=== PATIENT | female | born 1980 | race Caucasian/White ===

== ENCOUNTER 2017-05-24 17:23 | Emergency (ER) | payer OTHER ==
[~2017-05-24] VITALS: Ht 154.9 cm; Wt 61.2 kg
[2017-05-24] MEDS ORDERED: LEXAPRO20 MG PO (17:33)
[2017-05-24 18:10] LABS: ABSOLUTE MONOCYTES 0.3 thou/uL (0.0-1.2); BASOPHILS 0.6 %; EOSINOPHILS 0.2 %; HEMATOCRIT 46.5 % (37.0-47.0); HEMOGLOBIN 16.1 gm/dL (12.0-15.0); LYMPHOCYTES 15.7 %; MCH 32.7 pg (26.0-34.0); MCHC 34.7 g/dL (28.0-37.0); MCV 94.1 fL (80.0-100.0); MONOCYTES 4.2 %; MPV 8.4 fl. (7.2-11.1); NUCLEATED RBCS 0 /100WBC; PLATELET COUNT* 156 thou/uL (150-400); POLYS 79.3 %; RBC 4.94 mil/uL (4.20-5.00); RDW-CV 12.5 % (10.5-14.5); WBC 6.4 thou/uL (4.0-11.0)
[2017-05-24 18:18] LABS: CALCIUM 8.4 mg/dL (8.5-10.1); CREATININE 0.8 mg/dL (0.6-1.3); POTASSIUM 3.5 mmol/L (3.5-5.1)
[2017-05-24 18:22] LABS: ALBUMIN 3.7 g/dL (3.4-5.0); TOTAL BILIRUBIN 1.7 mg/dL (<0.1-1.0)
[2017-05-24 20:33] LABS: URINE BILIRUBIN NEGATIVE (Negative); URINE BLOOD 2+ (Negative); URINE CLARITY TURBID; URINE COLOR YELLOW; URINE GLUCOSE-RANDOM NEGATIVE (Negative); URINE KETONES TRACE (Negative); URINE LEUKOCYTES-REFLEX NEGATIVE (Negative); URINE NITRITE-REFLEX NEGATIVE (Negative); URINE PROTEIN NEGATIVE (Negative); URINE SPECIFIC GRAVITY <= 1.005 (1.005-1.030); URINE UROBILINOGEN 0.2 E.U./dl (0.2-1.0)
[2017-05-24 20:41] LABS: AMP/METHAMP Negative (Negative); BARBITURATES Negative (Negative); BENZODIAZEPINES Negative (Negative); COCAINE Negative (Negative); METHADONE Negative (Negative); OPIATES Negative (Negative); PCP Negative (Negative); THC Negative (Negative)
[2017-05-24 21:03] LABS: CASTS None Seen /LPF (None Seen); CRYSTALS None Seen /LPF (None Seen); MUCUS 0-3 Light strn/LPF (None Seen); SQUAMOUS >10 Many /LPF (0-3)
[2017-05-24 21:04] LABS: BACTERIA-REFLEX >30 Many /HPF (None Seen)
[2017-05-24 21:05] LABS: URINE RBC 0-2 Rare /HPF (0-2); URINE WBC-REFLEX 0-5 Rare /HPF (0-5)
[2017-05-24] MEDS ORDERED: ZOFRAN4 MG PO (22:19)
[2017-05-24 22:34] VITALS: BP 150/94
== END 2017-05-24 22:35 | disposition home or self-care (01) ==
LOC: M.ERS 17:23
PROVIDERS: Personal Emergency Response Attendant
DX: R10.13 Epigastric pain (principal); F17.210 Nicotine dependence, cigarettes, uncomplicated; Z88.1 Allergy status to other antibiotic agents

== ENCOUNTER 2018-02-26 17:49 | Inpatient (IN) | payer OTHER, MEDICAID ==
[~2018-02-26] VITALS: Ht 154.9 cm; Wt 72.5 kg
[~2018-02-26 17:49] MED LIST: LEXAPRO20 MG PO; ZOFRAN4 MG PO
[2018-02-26 17:58] VITALS: BP 155/85
[2018-02-26] MEDS ORDERED: GABAPENTIN 100100 MG PO (18:06)
--- NOTE | 2018-02-26 18:20 | NUR ---
MACARIO PONEC, FROM [facility] STATES TREATMENT IS SUPPORTIVE CARE.
[2018-02-26 18:25] LABS: ABSOLUTE MONOCYTES 0.4 thou/uL (0.0-1.2); BASOPHILS 0.4 %; HEMATOCRIT 45.5 % (37.0-47.0); HEMOGLOBIN 15.6 gm/dL (12.0-15.0); MCH 31.8 pg (26.0-34.0); MCHC 34.2 g/dL (28.0-37.0); MONOCYTES 6.8 %; MPV 8.5 fl. (7.2-11.1); NUCLEATED RBCS 0 /100WBC; PLATELET COUNT* 242 thou/uL (150-400); POLYS 61.8 %; RBC 4.89 mil/uL (4.20-5.00); RDW-CV 12.6 % (10.5-14.5); WBC 6.5 thou/uL (4.0-11.0)
[2018-02-26 18:31] LABS: CREATININE 2.6 mg/dL (0.6-1.3); POTASSIUM 3.2 mmol/L (3.5-5.1)
[2018-02-26 18:36] LABS: ALBUMIN 4.5 g/dL (3.4-5.0); TOTAL BILIRUBIN 0.2 mg/dL (<0.1-1.0); TOTAL PROTEIN 8.1 g/dL (6.4-8.2)
[2018-02-26 18:43] LABS: HCO3 25.3 mmol/L (22.0-26.0); PCO2 35.7 mmHg (35.0-45.0); PO2 85.5 mmHg (75.0-100.0); pH 7.468 (7.340-7.450)
[2018-02-26 19:05] LABS: ACETAMINOPHEN < 2 ug/mL (10-30); ALCOHOL < 10 mg/dL (<10)
[2018-02-26 20:00] VITALS: BP 117/80
[2018-02-26 20:05] VITALS: BP 127/82
[2018-02-26 21:00] VITALS: BP 130/70
[2018-02-26 21:59] LABS: URINE BILIRUBIN NEGATIVE (Negative); URINE BLOOD NEGATIVE (Negative); URINE CLARITY CLEAR; URINE COLOR YELLOW; URINE GLUCOSE-RANDOM NEGATIVE (Negative); URINE KETONES 1+ (Negative); URINE LEUKOCYTES-REFLEX NEGATIVE (Negative); URINE NITRITE-REFLEX NEGATIVE (Negative); URINE PROTEIN TRACE (Negative); URINE UROBILINOGEN 0.2 E.U./dl (0.2-1.0)
[2018-02-26 22:01] VITALS: BP 126/71
[2018-02-26 22:07] LABS: AMP/METHAMP Negative (Negative); BARBITURATES Negative (Negative); BENZODIAZEPINES Negative (Negative); COCAINE Negative (Negative); METHADONE Negative (Negative); OPIATES Negative (Negative); PCP Negative (Negative); THC Negative (Negative)
[2018-02-26 23:01] VITALS: BP 117/72
--- NOTE | 2018-02-27 01:07 | NUR ---
Pt was arrived at the unit at 2004. Assessment as charted. Pt is Axox4 and does not appear to be intoxicated. At midnight pt is wanting to leave AMA so she can be home because she feels better. RN explained the Risk of leaving AMA and that she her health deteorates she could possibly . Pt is aware that costly risk of leaving AMA but is wanting to sign the paperwork. [employer] was informed of patient wanting to leave AMA and was unsuccessful in convincing patient to stay. Pt signed AMA forms and found a ride to pick her up from the ICU. Axo4. VSS. stable at time of discharge from the ICU. Dr. Gary and consults called and informed of patient's departure.
--- NOTE | 2018-02-27 13:49 | EKG ---
[place] [address] ELECTROCARDIOGRAM REPORT Name: MEE LEMON Room: [address] DIS IN M.R.#: [id number] Admission: 02/26/18 Attend Phys: Andre Gary MD Discharge: 02/27/18 Date of : 76 Report #: [id number] THIS REPORT FOR: //name// [facility] ED Test Date: 2018-02-26 Test Time: 18:22:13 Pat Name: MEE LEMON Department: Room: [address] Gender: F Medical Technologist Hematology: : 1980 Requested By: Rene Taylor Order Number: [id number] Reading MD: Igor Feldman Measurements Intervals [place] Rate: 105 P: 69 PA: 116 QRS: 74 QRSD: 87 T: 39 QT: 344 QTc: 455 Interpretive Statements Sinus tachycardia LAE, consider biatrial enlargement No previous ECG available for comparison Electronically Signed On 02-27-2018 13:49:09 [employer] by Igor Feldman [email or web address] <ELECTRONICALLY SIGNED> By: Igor Feldman MD, [facility] 02/27/18 1349 21 21 Igor Feldman MD, [facility] /EPI
== END 2018-02-27 01:14 | disposition left against medical advice (07) | DRG 918 ==
LOC: M.ERS 17:49 → M.TBA-ER 18:45 → M.ICU 20:06
PROVIDERS: Emergency Medicine; ADMIT Internal Medicine
DX: T49.4X1A Poisoning by keratolytics, keratoplastics, and other hair treatment drugs and preparations, accidental (unintentional), initial encounter (principal); F17.210 Nicotine dependence, cigarettes, uncomplicated; Z53.21 Procedure and treatment not carried out due to patient leaving prior to being seen by health care provider; Y92.89 Other specified places as the place of occurrence of the external cause; Z88.1 Allergy status to other antibiotic agents